=== PATIENT | female | born 1940 | race Caucasian/White ===

== ENCOUNTER 2016-09-02 09:55 | Emergency (ER) | payer MEDICARE, BC, OTHER ==
[2016-09-02 10:10] VITALS: BP 99/55
[2016-09-02] MEDS ORDERED: Sodium Chloride 0.9% 10 ML Syringe FLUSH PRN (10:29)
[2016-09-02] MEDS ORDERED: Sodium Chloride 0.9% 1,000 ML IV SCH (10:30)
--- NOTE | 2016-09-02 12:17 | CT ---
CT facial bones Technique: Multiple axial sections through the facial bones were obtained. Reconstructed coronal and sagittal images were reviewed. Intravenous contrast was not utilized. Findings: Bony destruction is seen within the right side of the mandible involving mostly the coronoid process. Soft tissue thickening or mass is seen around this area of destruction. Soft tissue mass or thickening has dimensions of 3.4 x 3.8 cm with poor differentiation between this mass and the masseter muscle. Mild mucosal thickening seen within the maxillary sinuses. No additional abnormality is seen. Impression: 1. Bony destruction within the right side of the mandible involving mostly the coronoid process. Diffuse soft tissue thickening or mass is seen around this area of destruction with poor differentiation between this mass and the masseter muscle. Findings most likely are neoplastic in origin and given the history of lung cancer metastatic disease is most likely. 2. Mild mucosal thickening within the maxillary sinuses. Diagnostic code #9
--- NOTE | 2016-09-02 14:49 | EDM.PDOC ---
ED HPI GENERAL MEDICAL PROBLEM - General Chief Complaint: ENT Problem Stated Complaint: DENTAL COMPLAINT Time Seen by Provider: 09/02/16 10:23 Source of Information: Reports: Patient History Limitations: Reports: No Limitations - History of Present Illness INITIAL COMMENTS - FREE TEXT/NARRATIVE: The patient presents with right jaw pain. She says this all started 2 weeks ago. She has no teeth in that area. They have been pulled out. She denies fever or chills. She has pain when chewing. She recently found she has lung cancer that returned. She met with her oncologist and the patient and family have chose not to do any treatment. The patient and her family are worried this may be related to the cancer. She denies any chest pain, abdominal pain, nausea or vomiting. Onset: Gradual Duration: Week(s): (2) Location: Reports: Face (right jaw) Quality: Reports: Sharp Severity: Moderate Improves with: Reports: None Worsens with: Reports: Other (chewing) Context: Reports: Other (chewing makes it worse) Associated Symptoms: Reports: No Other Symptoms Right Oral/Mouth Pain Score (Numeric/FACES): 5 - Related Data Allergies Allergy/AdvReac Type Severity Reaction Status Date / Time acetaminophen [From Tylenol] Allergy Chest Verified 09/02/16 10:11 Tightness clindamycin Allergy Chest Verified 09/02/16 10:11 Tightness codeine Allergy Shortness Verified 09/02/16 10:11 of Breath Home Meds: Home Meds Allopurinol [Zyloprim] 100 mg PO DAILY 07/02/13 [History] Budesonide [Pulmicort] 0.5 mg NEB BID 07/02/13 [History] Cholecalciferol (Vitamin D3) [Vitamin D3] 400 units PO DAILY 07/02/13 [History] Diltiazem HCl [Diltiazem 24Hr ER] 240 mg PO DAILY 07/02/13 [History] Fish Oil/[place]-3 Fatty Acids [Fish Oil 1,000 MG] 1,000 mg PO DAILY 07/02/13 [ History] Furosemide [Lasix] 40 mg PO BID 07/02/13 [History] Levothyroxine Sodium [Synthroid] 75 mcg PO DAILY 07/02/13 [History] Pravastatin Sodium [Pravastatin (Pravachol)] 40 mg PO DAILY 07/02/13 [History] Vitamin A 8,000 unit PO DAILY 07/02/13 [History] Albuterol Sulfate 2.5 mg INH BID 02/10/14 [History] Ascorbic Acid [Vitamin C] 500 mg PO DAILY 02/10/14 [History] Metoprolol Succinate [Toprol XL] 12.5 mg PO DAILY 02/10/14 [History] Warfarin [Coumadin] 5 mg PO DAILY 02/10/14 [History] Mateo 250 mg PO DAILY 09/02/16 [History] Potassium Chloride 10 meq PO DAILY 09/02/16 [History] traMADol [Ultram] 50 mg PO Q8HR PRN 09/02/16 [History] Past Medical History HEENT History: Reports: Impaired Vision Cardiovascular History: Reports: High Cholesterol, Hypertension Other Cardiovascular History: Home oxygen use Other Respiratory History: stage 4 lung cancer Genitourinary History: Reports: Other (See Below) Other Genitourinary History: kindeys not functioning at 100% Musculoskeletal History: Reports: Arthritis Psychiatric History: Reports: Depression Endocrine/Metabolic History: Reports: Hypothyroidism Other Hematologic History: bone marrow biopsy Oncologic (Cancer) History: Reports: Lung Other Oncologic History: 15 years ago-now iin remission;had chemo and radiation - Past Surgical History HEENT Surgical History: Reports: Cataract Surgery, Tonsillectomy Other GI Surgeries/Procedures: hemorrhoids surgery Female Surgical History: Reports: Section, Hysterectomy, Salpingo- Oophorectomy Social & Family History - Family History Family Medical History: Noncontributory - Tobacco Use Smoking Status *Q: Former Smoker Years of Tobacco use: 40 Packs/Tins Daily: 1.5 Used Tobacco, but Quit: Yes Month Tobacco Last Used: 1996 Second Hand Smoke Exposure: No - Caffeine Use Caffeine Use: Reports: None - Alcohol Use Days Per Week of Alcohol Use: 0 - Recreational Drug Use Recreational Drug Use: No - Living Situation & Occupation Living situation: Reports: , with Spouse, with Family Occupation: Retired ED ROS ENT - Review of Systems Review Of Systems: See Below Constitutional: Reports: No Symptoms HEENT: Reports: Other (Right jaw pain) Respiratory: Reports: No Symptoms Cardiovascular: Reports: No Symptoms Endocrine: Reports: No Symptoms GI/Abdominal: Reports: No Symptoms : Reports: No Symptoms Musculoskeletal: Reports: No Symptoms ED EXAM, ENT - Physical Exam Exam: See Below Exam Limited By: No Limitations General Appearance: Alert, No Apparent Distress Ears: Normal External Exam Nose: Normal Inspection Mouth/Throat: Other (Pain upon palpation to the right jaw. The teeth have been removed in that area. There is no redness or edema to that area either.) Head: Atraumatic, Normocephalic Neck: Normal Inspection Respiratory/Chest: No Respiratory Distress, Lungs Clear, Normal Breath Sounds Cardiovascular: Regular Rate, Rhythm, No Edema, No Murmur GI/Abdominal: Soft, Non-Tender, No Organomegaly, No Mass Extremities: Normal Inspection Course - Vital Signs Last Recorded V/S: Last Vital Signs Temp 98.0 F 09/02/16 10:03 Pulse 95 09/02/16 10:03 Resp 18 09/02/16 10:03 BP 99/55 L 09/02/16 10:03 Pulse Ox 97 09/02/16 10:03 - Orders/Labs/Meds Orders: Active Orders 24 hr Category Date Time Status Peripheral IV Care [RC] . DIRECTED Care 09/02/16 10:29 Active Sodium Chloride 0.9% [Normal Saline] 1,000 ml Med 09/02/16 10:30 Active IV ASDIRECTED Sodium Chloride 0.9% [Saline Flush] Med 09/02/16 10:29 Active 10 ml FLUSH ASDIRECTED PRN Peripheral IV Insertion Adult [OM.PC] Stat Oth 09/02/16 10:29 Ordered Medication Orders Sodium Chloride (Normal Saline) 1,000 mls @ 125 mls/hr IV ASDIRECTED RASHAUN Last Admin: 09/02/16 10:55 Dose: 125 mls/hr Sodium Chloride (Saline Flush) 10 ml FLUSH ASDIRECTED PRN PRN Reason: Keep Vein Open Last Admin: 09/02/16 10:54 Dose: 10 ml Labs: Laboratory Tests 09/02/16 09/02/16 09/02/16 Range/Units 10:42 10:42 10:42 WBC 6.36 (3.98-10.04) K/mm3 RBC 3.31 L (3.98-5.22) M/mm3 Hgb 9.6 L (11.2-15.7) gm/L Hct 32.3 L (34.1-44.9) % MCV 97.6 H (79.4-94.8) fl MCH 29.0 (25.6-32.2) pg MCHC 29.7 L (32.2-35.5) g/dl RDW Std Deviation 48.5 H (36.4-46.3) fL Plt Count 310 (182-369) K/mm3 MPV 9.6 (9.4-12.3) fl Neut % (Auto) 62.9 (34.0-71.1) % Lymph % (Auto) 23.7 (19.3-51.7) % [place] % (Auto) 11.2 (4.7-12.5) % Eos % (Auto) 1.7 (0.7-5.8) Baso % (Auto) 0.3 (0.1-1.2) % Neut # (Auto) 4.00 (1.56-6.13) K/mm3 Lymph # (Auto) 1.51 (1.18-3.74) K/mm3 [place] # (Auto) 0.71 H (0.24-0.36) K/mm3 Eos # (Auto) 0.11 (0.04-0.36) K/mm3 Baso # (Auto) 0.02 (0.01-0.08) K/mm3 Manual Slide Review Abnormal smear PT 15.8 H (8.0-13.0) SECONDS INR 1.42 Sodium 141 (136-145) mEq/L Potassium 4.4 (3.5-5.1) mEq/L Chloride 103 (98-107) mEq/L Carbon Dioxide 29 (21-32) mEq/L Anion Gap 13.4 (5-15) BUN 60 H (7-18) mg/dL Creatinine 3.0 H (0.55-1.02) mg/dL Est Cr Clr Drug Dosing 14.58 mL/min Estimated GFR (MDRD) 15 (>60) mL/min BUN/Creatinine Ratio 20.0 H (14-18) Glucose 121 H (83-115) mg/dL Calcium 9.7 (8.5-10.1) mg/dL Total Bilirubin 0.4 (0.2-1.0) mg/dL AST 32 (15-37) U/L ALT 16 (14-59) U/L Alkaline Phosphatase 93 (46-116) U/L Total Protein 8.7 H (6.4-8.2) g/dl Albumin 2.7 L (3.4-5.0) g/dl Globulin 6.0 gm/dL Albumin/Globulin Ratio 0.5 L (1-2) Meds: Medications Generic Name Dose Route Start Last Admin Trade Name Freq PRN Reason Stop Dose Admin Sodium Chloride 1,000 mls @ 125 mls/hr 09/02/16 10:30 09/02/16 10:55 Normal Saline IV 125 mls/hr ASDIRECTED RASHAUN Administration Sodium Chloride 10 ml 09/02/16 10:29 09/02/16 10:54 Saline Flush FLUSH 10 ml ASDIRECTED PRN Administration Keep Vein Open - Re-Assessments/Exams Free Text/Narrative Re-Assessment/Exam: 09/02/16 14:44 I ordered an IV NS at 125ml/hr, CT of her facial bones and labs. Her WBC was normal. Her Hgb was a little low at 9.6. Her INR was low at 142. He creatinine was elevated at 3. Her creatinine last time was 2.9. He GFR was low at 15. The CT of her facial bones shows bony destruction within the right side of the mandible involving mostly the coronoid process. Diffuse soft tissue thickening of mass is seen around this area of destruction with poor differentation between this mass and the masseter muscle. Findings most likely are neoplastic in origin and given the history of lung cancer metastatic disease is most likely. I told the patient and her daughter and they were interested in Home Health and Hospice. I talked with Era our social worker psychiatric and she called Kayla the Hospice head. Kayla came to see the patient and she will get her admitted. I also called Dr Farr and he sent an order over. Departure - Departure Time of Disposition: 14:50 Disposition: Home, Self-Care 01 Condition: good Clinical Impression: Neoplasm of mandible Metastatic lung cancer (metastasis from lung to other site) Qualifiers: Laterality: unspecified laterality Qualified Code(s): C34.90 - Malignant neoplasm of unspecified part of unspecified bronchus or lung - Discharge Information Referrals: Wil Farr MD [Primary Care Provider] - Forms: ED Department Discharge Additional Instructions: Take motrin or aleve for pain. Try a softer diet. Please return if you are worse. - My Orders Last 24 Hours: My Active Orders 09/02/16 10:29 Peripheral IV Care [RC] . DIRECTED Sodium Chloride 0.9% [Saline Flush] 10 ml FLUSH ASDIRECTED PRN Peripheral IV Insertion Adult [OM.PC] Stat 09/02/16 10:30 Sodium Chloride 0.9% [Normal Saline] 1,000 ml IV ASDIRECTED - Assessment/Plan Last 24 Hours: My Active Orders 09/02/16 10:29 Peripheral IV Care [RC] . DIRECTED Sodium Chloride 0.9% [Saline Flush] 10 ml FLUSH ASDIRECTED PRN Peripheral IV Insertion Adult [OM.PC] Stat 09/02/16 10:30 Sodium Chloride 0.9% [Normal Saline] 1,000 ml IV ASDIRECTED
== END 2016-09-02 15:25 | disposition home or self-care (01) ==
LOC: JD.ED 09:55
DX: D49.2 Neoplasm of unspecified behavior of bone, soft tissue, and skin (principal); C34.90 Malignant neoplasm of unspecified part of unspecified bronchus or lung; I10 Essential (primary) hypertension; E78.00 Pure hypercholesterolemia, unspecified; F32.9 Major depressive disorder, single episode, unspecified; M19.90 Unspecified osteoarthritis, unspecified site; E03.9 Hypothyroidism, unspecified; Z98.49 Cataract extraction status, unspecified eye; Z98.890 Other specified postprocedural states; Z90.710 Acquired absence of both cervix and uterus; Z87.891 Personal history of nicotine dependence; Z79.899 Other long term (current) drug therapy; Z79.01 Long term (current) use of anticoagulants; Z88.1 Allergy status to other antibiotic agents; Z88.5 Allergy status to narcotic agent; Z88.6 Allergy status to analgesic agent
CPT/HCPCS: 36415; 70486; 80053; 85025; 85610; 96360; 96361; 99285; J7040; J7050; 99284